=== PATIENT | female | born 1960 | race African-American/Black ===

== ENCOUNTER 2016-07-06 00:38 | Observation (INO) | payer MEDICAID ==
[~2016-07-06] VITALS: Ht 170.2 cm; Wt 90.7 kg
[2016-07-06] MEDS: HYDROmorphone HCL 2 MG/ML VL IV ONE (03:40)
[2016-07-06] MEDS: ONDANSETRON HCL 4 MG/2 ML VIAL IV ONE ×2 (03:40→07:00)
[2016-07-06 06:57] VITALS: BP 108/71
[2016-07-06] MEDS: MORPHINE SULF INJ 2 MG/ML SYRINGE 1ML IV ONE (07:00)
== END 2016-07-06 08:21 | disposition home or self-care (01) | DRG 342 ==
LOC: ER 00:40 → OVERFLOW 04:07 → ER 08:21
PROVIDERS: ADMIT Emergency Medicine; ATTEND Emergency Medicine
DX: S42.341A Displaced spiral fracture of shaft of humerus, right arm, initial encounter for closed fracture (principal); W19.XXXA Unspecified fall, initial encounter; Y93.89 Activity, other specified; Y92.89 Other specified places as the place of occurrence of the external cause; Y99.8 Other external cause status
CPT/HCPCS: 29105; 73030; 73060; 96374; 96375; 96376; 99285; G0378; J1170; J2405

== ENCOUNTER 2019-11-08 19:51 | Emergency (ER) | payer MEDICAID ==
[~2019-11-08] VITALS: Ht 172.7 cm; Wt 99.8 kg
[2019-11-08] MEDS ORDERED: ACETAMINOPHEN/CODEINE#3 (300/30mg) TAB PO ONE (22:00)
[2019-11-08 22:12] VITALS: BP 166/85
[2019-11-09] MEDS ORDERED: cefTRIAXone SOD 1,000 MG VL IM ONE (00:15)
== END 2019-11-09 01:10 | disposition home or self-care (01) ==
LOC: ER 19:51
DX: L03.314 Cellulitis of groin (principal); L02.214 Cutaneous abscess of groin; K80.20 Calculus of gallbladder without cholecystitis without obstruction; M79.651 Pain in right thigh
CPT/HCPCS: 74176; 76881; 96372; 99284; J0696